=== PATIENT | female | born 2000 | race African-American/Black ===

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

== ENCOUNTER 2020-05-06 21:50 | Inpatient (IN) ==
[2020-05-06 22:10] VITALS: BMI 39.4
[2020-05-06] MEDS ORDERED: APRESOLINE INJ 20 MG VIAL IVP ONE (22:39)
--- NOTE | 2020-05-06 22:40 | DR.HTN ---
HPI Time Seen Time Seen by Provider: 05/06/20 22:24 Primary Care Physician Primary Care Physician: HIRAM HPI Comment HPI Comment: Worsening swelling in feet over several days with elevation in bp which sent her to ob last Wednesday; given bp medication which she has not filled; lt foot started hurting tonight so she came to ER; no cp, sob, palpitations, abd pain, fever, chills, n,v,d. Complaints Chief Complaint:: PT AMBULATORY IN ED WITH C/O BLOOD PRESSURE BEING HIGH AND FEET SWOLLEN. PT 37 WEEK OB WITH DUE DATE OF 05/27/20. COVID-19 Coronavirus risk:travel/contact w/high risk person: No Has patient experienced Coronavirus symptoms: No Source History Provided: Patient Mode of Arrival Mode of Arrival: Ambulatory Timing Onset of Chief Complaint: 04/29/20 PMH PMH Past Medical History: Yes Past Medical History: Hypertension Past Surgical History: No Surgical History: No History Family History History of Family Medical Conditions: Yes Family Medical History: Hypertension Social History Does patient currently use any type of tobacco product: No Have you used tobacco products in the last 12 months: No Type of Tobacco Use: None Does any household member use tobacco: No Alcohol Use: None Do you use any recreational Drugs:: No Lives With: Family Lives Where: Home Travel Risk Coronavirus risk:travel/contact w/high risk person: No Has patient experienced Coronavirus symptoms: No Infectious screening In the last 2 months have you had wt loss of >10#?: NO Have you had fever, night sweats or hemotysis?: No Have you traveled outside the country in the last 6 months?: No Isolation: Standard ROS Review of Systems Constitutional: No Symptoms Reported Eyes: No Symptoms Reported ENTM: No Symptoms Reported Respiratoy: No Symptoms Reported Cardiovascular: No Symptoms Reported Gastrointestinal/Abdominal: No Symptoms Reported Neurological: No Symptoms Reported Integumentary: No Symptoms Reported Hematologic/Lymphatic: No Symptoms Reported Endocrine: No Symptoms Reported Psychiatric: No Symptoms Reported PE Vital Signs Vitals: Temperature 97.1 F Pulse Rate 145 Respiratory Rate 30 Blood Pressure [Right Arm] 122/74 Blood Pressure 146/81 O2 Sat by Pulse Oximetry 98 General Limitations: No Limitations General Appearance: Alert and In No Apparent Distress Head Head Exam: Normal Inspection Eyes Eye exam: Normal Appearance ENT ENT Exam: Normal Exam Neck Neck Exam: Normal Inspection Chest Chest Inspection: Normal Inspection Respiratory Respiratory Exam: Normal Lung Sounds Bilat Respiratory Exam: Bilateral: Clear to Auscultation Cardiovascular Cardiovascular Exam: Regular Rate and Normal Rhythm Abdominal Exam Abdominal Exam: Normal Inspection, Normal Bowel Sounds and Soft Extremities Extremities Exam: Edema (3+ bilateral) Back Back Exam: Normal Inspection Neurologic Neurological Exam: Alert and Oriented X3 Psychiatric Psychiatric Exam: Normal Affect and Normal Mood Skin Skin Exam: Warm, Dry, Intact and Normal Color COURSE Reevaluation 1st: Improved (bp down but hr is up) Consultation Call Returned: 23:19 (Dr Garcia notified of bp and 3+ protein; wants team called in for immediate section) ROR Labs Reviewed Result Diagrams: 05/06/20 22:48 05/06/20 22:48 Laboratory: WBC 9.6 X10^3/uL (3.6-10.0) 05/06/20 22:48 RBC 4.11 X10^6/uL (3.5-5.4) 05/06/20 22:48 Hgb 11.3 g/dL (12.0-16.0) L 05/06/20 22:48 Hct 34.7 % (36.0-47.0) L 05/06/20 22:48 MCV 84.3 fL (80.0-100.0) 05/06/20 22:48 MCH 27.4 pg (27.0-34.0) 05/06/20 22:48 MCHC 32.5 g/dL (33.0-35.0) L 05/06/20 22:48 RDW 13.9 % (11.6-16.5) 05/06/20 22:48 Plt Count 154 X10^3/uL (150.0-450.0) 05/06/20 22:48 MPV 10.2 fL (7.4-11.0) 05/06/20 22:48 Neut % (Auto) 68.1 % (42.0-75.0) 05/06/20 22:48 Lymph % (Auto) 23.4 % (21.0-51.0) 05/06/20 22:48 [place] % (Auto) 7.3 % (0.0-13.0) 05/06/20 22:48 Eos % (Auto) 0.9 % (0.9-2.9) 05/06/20 22:48 Baso % (Auto) 0.3 % (0.2-1.0) 05/06/20 22:48 Neut # (Auto) 6.5 x10^3/uL (2.2-4.8) H 05/06/20 22:48 Lymph # (Auto) 2.2 X10^3/uL (1.3-2.9) 05/06/20 22:48 [place] # (Auto) 0.7 x10^3/uL (0.3-0.8) 05/06/20 22:48 Eos # (Auto) 0.1 x10^3/uL (0.0-0.2) 05/06/20 22:48 Baso # (Auto) 0.0 X10^3/uL (0.0-0.1) 05/06/20 22:48 Absolute Nucleated RBC 0.0 /100WBC 05/06/20 22:48 Sodium 139 mmol/L (136-145) 05/06/20 22:48 Corrected Sodium 139 mmol/L (136-145) 05/06/20 22:48 Potassium 3.5 mmol/L (3.5-5.1) 05/06/20 22:48 Chloride 105 mmol/L (98-107) 05/06/20 22:48 Carbon Dioxide 23.5 mmol/L (21-32) 05/06/20 22:48 BUN 4 mg/dL (7-18) L 05/06/20 22:48 Creatinine 0.86 mg/dL (0.55-1.02) 05/06/20 22:48 Est GFR (MDRD) Af Amer > 60 (>60) 05/06/20 22:48 Est GFR (MDRD) Non-Af > 60 (>60) 05/06/20 22:48 Glucose 119 mg/dL (65-99) H 05/06/20 22:48 Calcium 9.5 mg/dL (8.5-10.1) 05/06/20 22:48 Corrected Calcium 10.7 mg/dL (8.5-10.1) H 05/06/20 22:48 Total Bilirubin 0.40 mg/dL (0.2-1.0) 05/06/20 22:48 AST 11 Units/L (15-37) L 05/06/20 22:48 ALT 13 Units/L (12-78) 05/06/20 22:48 Alkaline Phosphatase 116 Units/L (45-150) 05/06/20 22:48 Total Protein 6.1 g/dL (6.4-8.2) L 05/06/20 22:48 Albumin 2.5 g/dL (3.4-5.0) L 05/06/20 22:48 Globulin 3.6 g/dL (2.5-4.5) 05/06/20 22:48 Albumin/Globulin Ratio 0.7 Ratio (1.1-2.1) L 05/06/20 22:48 Specimen Type Clean catch urine 05/06/20 22:38 Urine Color Yellow (YELLOW) 05/06/20 22:38 Urine Appearance Hazy (CLEAR) 05/06/20 22:38 Urine pH 7.0 (5.0 - 8.0) 05/06/20 22:38 Ur Specific [place] 1.010 (1.000-1.030) 05/06/20 22:38 Urine Protein 3+ (NEGATIVE) 05/06/20 22:38 Urine Glucose (UA) Negative (NEGATIVE) 05/06/20 22:38 Urine Ketones Negative (NEGATIVE) 05/06/20 22:38 Urine Occult Blood Negative (NEGATIVE) 05/06/20 22:38 Urine Nitrite Negative (NEGATIVE) 05/06/20 22:38 Urine Bilirubin Negative (NEGATIVE) 05/06/20 22:38 Urine Urobilinogen Normal (NORMAL) 05/06/20 22:38 Ur Leukocyte Esterase 1+ (NEGATIVE) 05/06/20 22:38 Urine RBC None seen /HPF (0-3) 05/06/20 22:38 Urine WBC 3-5 /HPF (0-5) 05/06/20 22:38 Ur Squamous Epith Cells Numerous /HPF (NEGATIVE) 05/06/20 22:38 Urine Bacteria 1+ /HPF (NEGATIVE) 05/06/20 22:38 Ur Culture Indicated? No/not indicated 05/06/20 22:38 Opioid Opioid Risk Tool Age (Jori box if 16-45): Yes History of Preadolescent Sexual Abuse: No Total: 1 Total Score Risk Category: Low Risk Copyright: Edmar SO predicting aberrant behaviors Diagnosis Discharge Problem: Pre-eclampsia Qualifiers: Trimester: third trimester Qualified Code(s): O14.93 - Unspecified pre- eclampsia, third trimester
[2020-05-06] MEDS ORDERED: APRESOLINE INJ 20 MG VIAL ONE (22:44)
[2020-05-06 23:01] LABS: BASOPHILS % (AUTO) 0.3 % (0.2-1.0); EOSINOPHILS # (AUTO) 0.1 x10^3/uL (0.0-0.2); EOSINOPHILS % (AUTO) 0.9 % (0.9-2.9); HEMATOCRIT 34.7 % (36.0-47.0); HEMOGLOBIN 11.3 g/dL (12.0-16.0); LYMPHOCYTES # (AUTO) 2.2 X10^3/uL (1.3-2.9); LYMPHOCYTES % (AUTO) 23.4 % (21.0-51.0); MEAN CORPUSCULAR HEMOGLOBIN 27.4 pg (27.0-34.0); MEAN CORPUSCULAR HGB CONC 32.5 g/dL (33.0-35.0); MEAN CORPUSCULAR VOLUME 84.3 fL (80.0-100.0); MEAN PLATELET VOLUME 10.2 fL (7.4-11.0); MONOCYTES # (AUTO) 0.7 x10^3/uL (0.3-0.8); MONOCYTES % (AUTO) 7.3 % (0.0-13.0); NEUTROPHILS # (AUTO) 6.5 x10^3/uL (2.2-4.8); NEUTROPHILS % (AUTO) 68.1 % (42.0-75.0); PLATELET COUNT 154 X10^3/uL (150.0-450.0); RED BLOOD COUNT 4.11 X10^6/uL (3.5-5.4); RED CELL DISTRIBUTION WIDTH 13.9 % (11.6-16.5); WHITE BLOOD COUNT 9.6 X10^3/uL (3.6-10.0)
[2020-05-06 23:09] LABS: ALANINE AMINOTRANSFERASE 13 Units/L (12-78); ALBUMIN 2.5 g/dL (3.4-5.0); ALKALINE PHOSPHATASE 116 Units/L (45-150); ASPARTATE AMINO TRANSFERASE 11 Units/L (15-37); BLOOD UREA NITROGEN 4 mg/dL (7-18); CALCIUM 9.5 mg/dL (8.5-10.1); CARBON DIOXIDE 23.5 mmol/L (21-32); CHLORIDE 105 mmol/L (98-107); COR CA(FOR HYPOALB) 10.7 mg/dL (8.5-10.1); COR NA(FOR HYPERGLY) 139 mmol/L (136-145); CREATININE 0.86 mg/dL (0.55-1.02); SODIUM 139 mmol/L (136-145); TOTAL PROTEIN 6.1 g/dL (6.4-8.2); eGFR NON BLACK RACES > 60 (>60)
[2020-05-06 23:24] LABS: BILIRUBIN,URINE NEGATIVE (NEGATIVE); BLOOD/HEMOGLOBIN,URINE NEGATIVE (NEGATIVE); GLUCOSE, URINE NEGATIVE (NEGATIVE); KETONES,URINE NEGATIVE (NEGATIVE); LEUKOCYTE ESTERASE ,URINE 1+ (NEGATIVE); NITRITES,URINE NEGATIVE (NEGATIVE); PROTEIN,URINE 3+ (NEGATIVE); UROBILINOGEN,URINE NORMAL (NORMAL)
[2020-05-06 23:25] LABS: APPEARANCE,URINE HAZY (CLEAR); BACTERIA,URINE 1+ /HPF (NEGATIVE); COLOR,URINE YELLOW (YELLOW); RBC,URINE NONE SEEN /HPF (0-3); SQUAMOUS EPITHELIAL CELL,UR NUMEROUS /HPF (NEGATIVE)
[2020-05-06] MEDS ORDERED: LR 1000 ML IV 1,000 ML IV ONE ×3 (23:43→23:51)
[2020-05-07] MEDS ORDERED: PITOCIN ONE ×2 (00:31→07:19)
[2020-05-07] MEDS ORDERED: DILAUDID INJ ONE (00:31)
[2020-05-07] MEDS ORDERED: NS 1000 ML 1,000 ML ONE (00:31)
[2020-05-07] MEDS ORDERED: CYTOTEC VG SCH (00:36)
[2020-05-07] MEDS ORDERED: MORPHINE SULFATE INJ 2 MG INJ IVP PRN (00:42)
[2020-05-07] MEDS ORDERED: DILAUDID INJ IVP PRN (00:42)
[2020-05-07] MEDS ORDERED: D5LR 1L W PITOCIN 10 UNITS/L 10 UNITS/1,000 ML BAG IV PRN (00:42)
[2020-05-07] MEDS ORDERED: PHENERGAN INJ 25 MG IM PRN (00:42)
[2020-05-07] MEDS ORDERED: PITOCIN IVP ONE (00:42)
[2020-05-07] MEDS ORDERED: REGLAN INJ 10 MG VIAL IVP PRN (00:42)
[2020-05-07] MEDS ORDERED: AMPICILLIN VIAL 2 GRAM 2 G in NS 100 ML IV + SPIKE MINIBAG* 100 ML IV SCH (01:00)
[2020-05-07] MEDS ORDERED: D5 1/2 NS 1000 ML 1,000 ML IV ONE ×2 (01:41→07:20)
[2020-05-07] MEDS ORDERED: CYTOTEC ONE (01:41)
[2020-05-07] MEDS: D5 1/2 NS 1000 ML 1,000 ML IV SCH (01:45)
[2020-05-07] MEDS ORDERED: APRESOLINE INJ 20 MG VIAL ONE (01:52)
[2020-05-07] MEDS ORDERED: MAGNESIUM SULFATE 40 GRAMS IV 40 G/1,000 ML BAG IV ONE ×2 (02:06→18:33)
[2020-05-07] MEDS: MAGNESIUM SULFATE 40 GRAMS IV IV PRN ×2 (02:10→17:22)
[2020-05-07] MEDS ORDERED: AMPICILLIN VIAL 1 GRAM 1 G in NS 50 ML IV + SPIKE MINIBAG* 50 ML IV SCH (04:45)
[2020-05-07] MEDS ORDERED: STADOL INJ ONE ×2 (05:59→11:59)
[2020-05-07] MEDS: STADOL INJ IVP PRN ×2 (06:15→12:50)
[2020-05-07] MEDS ORDERED: BETADINE SOLN ONE (07:20)
--- NOTE | 2020-05-07 07:55 | US ---
HISTORYIN LABOR, POSITIONSTUDYOB GREATER THAN 14 WEEKS LIMITCOMPARISONNoneTECHNIQUEOb 2nd/3rd trimester ultrasound, limited.FINDINGSA single gestational is identified with cephalic presentation. Placental location is posterior. heart rate 146 beats per minute.BPD 9.17 cm 37 weeks 2 days.HC 32.12 cm 36 weeks 2 days.IMPRESSIONFetal position is cephalic.Electronically signed by: Lake Rodriguez (May 07, 2020 07:52:26)
[2020-05-07] MEDS ORDERED: AMPICILLIN VIAL 2 GRAM ONE (09:08)
[2020-05-07] MEDS ORDERED: NS 100 ML IV 100 ML IV ONE ×2 (09:08→12:38)
[2020-05-07] MEDS ORDERED: NORMODYNE INJ 20 MG VIAL ONE ×3 (09:13→18:32)
[2020-05-07] MEDS ORDERED: DIFLUCAN ONE (11:05)
[2020-05-07] MEDS ORDERED: AMPICILLIN VIAL 1 GRAM ONE (12:37)
[2020-05-07] MEDS ORDERED: LR 1000 ML IV 1,000 ML IV ONE (13:38)
[2020-05-07] MEDS ORDERED: ANCEF IV ONE (13:38)
[2020-05-07] MEDS ORDERED: EPHEDRINE SULFATE INJ ONE (14:00)
[2020-05-07] MEDS ORDERED: XYLOCAINE 1 % (PLAIN) ONE (14:00)
[2020-05-07] MEDS ORDERED: MARCAINE SPINAL ONE (14:00)
[2020-05-07] MEDS ORDERED: ANCEF VIAL 1 GRAM ONE (14:05)
[2020-05-07] MEDS ORDERED: HEMABATE IM ONE (14:35)
[2020-05-07] MEDS ORDERED: ZOFRAN INJ 4 MG VIAL ONE (15:03)
[2020-05-07] MEDS ORDERED: D5 1/2 NS 1000 ML 1,000 ML with PITOCIN 20 UNITS IV SCH ×2 (15:47)
[2020-05-07] MEDS ORDERED: MYLICON TAB 80 MG CHEW PO PRN (15:47)
[2020-05-07] MEDS ORDERED: ZOFRAN INJ 4 MG VIAL IVP PRN (15:47)
[2020-05-07] MEDS: TORADOL 30 MG VIAL IVP SCH ×2 (15:47→22:12)
[2020-05-07] MEDS ORDERED: MOTRIN TAB 800 MG PO PRN (15:47)
[2020-05-07] MEDS ORDERED: TORADOL 30 MG VIAL ONE ×2 (16:59→21:50)
[2020-05-07] MEDS ORDERED: BENADRYL INJ 50 MG VIAL IVP ONE (19:11)
[2020-05-07] MEDS ORDERED: BENADRYL INJ 50 MG VIAL ONE (19:40)
[2020-05-08] MEDS ORDERED: PITOCIN ONE (00:04)
[2020-05-08] MEDS ORDERED: NS 1000 ML 1,000 ML ONE (00:04)
[2020-05-08] MEDS: D5 1/2 NS 1000 ML 1,000 ML IV SCH ×3 (00:11→10:45)
[2020-05-08] MEDS ORDERED: TORADOL 30 MG VIAL ONE (03:25)
[2020-05-08] MEDS: TORADOL 30 MG VIAL IVP SCH ×2 (03:31→09:18)
[2020-05-08 05:18] LABS: HEMATOCRIT 33.7 % (36.0-47.0); HEMOGLOBIN 10.9 g/dL (12.0-16.0)
[2020-05-08] MEDS: MAGNESIUM SULFATE 40 GRAMS IV IV PRN (06:28)
[2020-05-08] MEDS ORDERED: NORMODYNE INJ 20 MG VIAL IVP PRN (06:45)
--- NOTE | 2020-05-08 08:12 | NOTE.PROBC ---
Progress Note OB-C/S Subjective Data Subjective: No complaints, decreased lochia. Tolerating liquid diet. No N/V. Ambulating well. Garcias draining well. Pain under good control with Toradol. Objective Data Result Diagrams: 05/08/20 05:05 05/06/20 22:48 Objective Data: CV= RRR no MRG Lungs=CTA Bilaterally Abd=(+) BS, soft, ND, appropriately tender near incision. Bandage removed. Incision clean/dry/intact, no erythema, no bleeding, no discharge. Dermabond/Stitches intact. Fundus firm/NT/ at 2 cm below umbilicus. Ext= No edema, NT, No Cords. Graduated Compression Stockings/Sequential Compression Devices Bilaterally. Plan (1) Severe pre-eclampsia: Plan: The pt is presently on Mag Sulfate for 24 hours after her delivery due to severe PIH. Her BP is running 148/80 at present. She may need oral Labetalol for snf use as she appears to have also chronic HTN (2) Postcesarean section:
[2020-05-08] MEDS: PRENATAL PLUS PO SCH (09:18)
[2020-05-08] MEDS ORDERED: TORADOL 30 MG VIAL IVP PRN (15:00)
[2020-05-08] MEDS: PERCOCET TAB 5/325 MG PO PRN (20:34)
[2020-05-08 21:45] VITALS: BP 165/98
[2020-05-09] MEDS: PERCOCET TAB 5/325 MG PO PRN (07:21)
--- NOTE | 2020-05-09 07:37 | NOTE.PROBC ---
Progress Note OB-C/S Subjective Data Subjective: No complaints, decreased lochia. Tolerating regular diet. No N/V. Ambulating well. Garcias draining well. Pain under good control with Toradol. Objective Data Result Diagrams: 05/08/20 05:05 05/06/20 22:48 Objective Data: CV= RRR no MRG Lungs=CTA Bilaterally Abd=(+) BS, soft, ND, appropriately tender near incision. Bandage removed. Incision clean/dry/intact, no erythema, no bleeding, no discharge. Dermabond/Stitches intact. Fundus firm/NT/ at 3 cm below umbilicus. Ext= No edema, NT, No Cords. Graduated Compression Stockings/Sequential Compression Devices Bilaterally. Plan (1) Severe pre-eclampsia: Plan: ready for d/c (2) Postcesarean section:
[2020-05-09] MEDS: PRENATAL PLUS PO SCH (08:44)
== END 2020-05-09 11:40 | disposition home or self-care (01) | DRG 788 ==
LOC: ER 21:58 → LD 05-07 00:18 → MED/SURG 05-07 15:37
PROVIDERS: ADMIT Obstetrics & Gynecology; ATTEND Obstetrics & Gynecology
DX: O14.14 Severe pre-eclampsia complicating childbirth; O33.5XX0 Maternal care for disproportion due to unusually large fetus, not applicable or unspecified; Z37.0 Single live birth; Z3A.37 37 weeks gestation of pregnancy; R94.31 Abnormal electrocardiogram [ECG] [EKG]